=== PATIENT | male | born 1955 | race Caucasian/White ===

== ENCOUNTER → 2016-07-17 | Outpatient (REF) ==
[~2016-07-17] MED LIST: AMOXICILLIN 50500 MG PO; AMOXICILLIN875 MG PO; ANTIBIOTIC; ANTIVERT 25MG25 MG PO; ATIVAN 0.50.5 MG/TAB PO; ATIVAN 1MG T1 MG/TAB PO; B-1100 MG PO; CARDI-OMEGA1000 MG PO; CEPHALEXIN500 M1 PO; DIAZEPAM PO; FOLIC ACID 11 MG/TA1 PO; HYDROCODONE/APAP; K-DUR 10 MEQ T10 MEQ PO; K-TAB20 PO; LORTAB 2.5/5001 TAB PO; LORTAB 5/500 501 TAB PO; MAG-CAPS85 MG PO; MAGOX 400241.3 MG PO; NO HOME MEDICATIONS; NORCO 325 MG-101 TAB; NORCO 325 MG-101 TAB PO; NORCO 325 MG-51 TAB PO; OXYCODONE HCL5 MG PO; PRINIVIL10 MG PO; PROTONIX 40MG T40 MG PO; TRAMADOL; ULTRAM 50MG TAB50 MG; ULTRAM 50MG TAB50 MG PO; ULTRAM50 MG PO; VALIUM 5MG T5 MG/TAB PO
[2016-07-17 15:33] LABS: TOTAL IRON BINDING CAPACITY 367 ug/dL (261-462)
[2016-07-17 15:58] LABS: FERRITIN 56 ng/mL (18-464)
== END ==
LOC: ZLAB.WCH 14:46
PROVIDERS: Internal Medicine
DX: Z01.89 Encounter for other specified special examinations (principal)

== ENCOUNTER → 2017-10-22 | Outpatient (CLI) | payer MEDICARE | LOC: COL.RAD 10:47 | DX: M17.0 Bilateral primary osteoarthritis of knee (principal); M89.8X8 Other specified disorders of bone, other site ==

== ENCOUNTER → 2017-11-19 | Outpatient (CLI) | payer MEDICARE ==
[2017-11-19 16:10] LABS: BASO % 0.5 % (0.0-2.0); EOS # 0.1 (0.0-0.7); EOS % 2.2 % (0-4.0); HEMATOCRIT 39.4 % (42.0-52.0); HEMOGLOBIN 13.5 g/dl (13.5-18.0); LYMPH # 2.4 (1.2-3.4); LYMPH % 37.2 % (20.0-51.0); MEAN CELL VOLUME 99 fl (80.0-100.0); MEAN CORPUSCULAR HEMOGLOBIN 34 pg (27.0-31.0); MEAN CORPUSCULAR HGB CONC 34 g/dl (33.0-37.0); MEAN PLATELET VOLUME 10.9 fl (7.4-10.4); MONO # 0.8 (0.1-0.6); MONO % 12.8 % (1.7-9.3); PLATELET COUNT 208 K/mm3 (130-400); RED BLOOD COUNT 3.98 M/mm3 (4.20-5.60)
[2017-11-19 16:13] LABS: ALBUMIN 3.6 gm/dL (3.5-5.0); BILIRUBIN,TOTAL 0.7 mg/dL (0.0-1.0); CALCIUM 9.3 mg/dL (8.4-10.2); CREATININE, serum 1.04 mg/dL (0.66-1.25); POTASSIUM 4.2 mmol/L (3.4-5.0); TOTAL PROTEIN 6.7 gm/dL (6.4-8.2)
== END ==
LOC: COL.LAB 09:09
PROVIDERS: Family Medicine
DX: N52.9 Male erectile dysfunction, unspecified (principal)

== ENCOUNTER 2018-05-21 11:30 | Emergency (ER) | payer MEDICARE ==
[~2018-05-21] VITALS: Ht 172.7 cm; Wt 75.0 kg
[2018-05-21 11:31] VITALS: TEMP 97.4
[2018-05-21] MEDS ORDERED: TOPROL XL 50MG50 MG PO (11:36)
[2018-05-21 11:58] LABS: BASO % 0.8 % (0.0-2.0); GRAN # 3.6 (1.4-6.5); GRAN % 68.4 % (42.2-75.2); HEMATOCRIT 38.9 % (42.0-52.0); HEMOGLOBIN 13.5 g/dl (13.5-18.0); LYMPH % 18.2 % (20.0-51.0); MEAN CELL VOLUME 105 fl (80.0-100.0); MEAN CORPUSCULAR HEMOGLOBIN 36 pg (27.0-31.0); MEAN CORPUSCULAR HGB CONC 35 g/dl (33.0-37.0); MEAN PLATELET VOLUME 10.7 fl (7.4-10.4); MONO # 0.6 (0.1-0.6); MONO % 11.3 % (1.7-9.3); PLATELET COUNT 100 K/mm3 (130-400); RED BLOOD COUNT 3.71 M/mm3 (4.20-5.60); REDCELL DISTRIBUTION WIDTH-CV 12.3 % (11.5-14.5)
[2018-05-21 12:06] LABS: ALANINE AMINOTRANSFERASE 62 U/L (21-72); ALBUMIN 4.8 gm/dL (3.5-5.0); ALKALINE PHOSPHATASE 94 U/L (50-136); ANION GAP 28 mmol/L (7-16); AST,SGOT 155 U/L (15-37); BILIRUBIN,TOTAL 1.1 mg/dL (0.0-1.0); BLOOD UREA NITROGEN 11 mg/dL (9-20); CALCIUM 9.3 mg/dL (8.4-10.2); CHLORIDE 98 mmol/L (98-107); GLUCOSE 174 mg/dL (74-106); MAGNESIUM 1.6 mg/dL (1.6-2.3); POTASSIUM 3.4 mmol/L (3.4-5.0); SODIUM 137 mmol/L (137-145); TOTAL PROTEIN 7.7 gm/dL (6.4-8.2)
[2018-05-21 12:30] LABS: ALCOHOL(ethanol),MEDICAL < 10 mg/dL; CARBON DIOXIDE 12 mmol/L (22-30)
[2018-05-21 16:15] VITALS: BP 131/94; PULSE 107
== END 2018-05-21 16:15 | disposition home or self-care (01) ==
LOC: COL.ER 11:30
PROVIDERS: Nurse Practitioner
DX: R56.9 Unspecified convulsions (principal); F10.239 Alcohol dependence with withdrawal, unspecified; I10 Essential (primary) hypertension; F17.210 Nicotine dependence, cigarettes, uncomplicated
CPT/HCPCS: J2060; J7030